=== PATIENT | female | born 1995 | race Caucasian/White ===

== ENCOUNTER 2019-05-25 22:28 | Emergency (ER) | payer OTHER ==
[~2019-05-25] VITALS: Ht 167.6 cm; Wt 50.0 kg
[2019-05-25] MEDS ORDERED: normal saline 1000ML IV soln IVB ONE (23:00)
--- NOTE | 2019-05-25 23:17 | NUR ---
PT REQUESTED THAT THE HOSPITAL RUN A BLOOD ALCOHOL TEST. ADVISED PT THAT THIS TEST IS NOT PERMISSABLE IN COURT. PT ALSO HAD AN OFFICIAL LEGAL DRAW DONE WELL.
[2019-05-25 23:20] LABS: URINE AMPHETAMINE SCREEN NEGATIVE (Neg); URINE BARBITUATE SCREEN NEGATIVE (Neg); URINE BENZODIAZEPINES SCREEN NEGATIVE (Neg); URINE CANNABINOID SCREEN NEGATIVE (Neg); URINE COCAINE SCREEN NEGATIVE (Neg); URINE METHADONE SCREEN NEGATIVE (Neg); URINE OPIATE SCREEN NEGATIVE (Neg); URINE PHENCYCLIDINE SCREEN NEGATIVE (Neg)
[2019-05-26 01:28] VITALS: BP 157/100
== END 2019-05-26 01:30 | disposition home or self-care (01) ==
LOC: ER 22:29
DX: F10.929 Alcohol use, unspecified with intoxication, unspecified (principal); R00.0 Tachycardia, unspecified; I10 Essential (primary) hypertension; V49.88XA Car occupant (driver) (passenger) injured in other specified transport accidents, initial encounter; Y93.89 Activity, other specified; Y92.413 State road as the place of occurrence of the external cause; Y99.9 Unspecified external cause status; Y90.9 Presence of alcohol in blood, level not specified
CPT/HCPCS: 36415; 80305; 80320; 99283; J7030

== ENCOUNTER 2020-02-08 16:33 | Emergency (ER) | payer OTHER ==
[~2020-02-08] VITALS: Ht 167.6 cm; Wt 52.7 kg
[2020-02-08 17:25] LABS: BASOPHILS % (AUTO) 0.1 % (0-1); EOSINOPHILS % (AUTO) 0 % (0-6); HEMOGLOBIN 14.7 g/dl (12.0-16.0); LYMPHOCYTES # (AUTO) 0.6 X10'3 (1.1-4.8); LYMPHOCYTES % (AUTO) 5.6 % (21-51); MEAN CORPUSCULAR HEMOGLOBIN 35.7 PG (27.0-31.0); MEAN CORPUSCULAR VOLUME 104.7 FL (78-98); MEAN PLATELET VOLUME 6.9 FL (7.4-10.4); MONOCYTES # (AUTO) 0.6 X10'3 (0-0.9); MONOCYTES % (AUTO) 5.4 % (2-12); NEUTROPHILS # (AUTO) 10.2 X10'3 (1.8-7.7); NEUTROPHILS % (AUTO) 88.9 % (42-75); PLATELET COUNT 304 X10'3 (140-440); RED BLOOD COUNT 4.11 X10'6 (4.20-5.60); RED CELL DISTRIBUTION WIDTH 12.9 % (11.5-14.5); WHITE BLOOD COUNT 11.5 X10'3 (4.5-11.0)
[2020-02-08 17:30] LABS: ALANINE AMINOTRANSFERASE 35 U/L (12-78); ALBUMIN 4.6 G/DL (3.4-5.0); ALBUMIN/GLOBULIN RATIO 1.4 (1.1-1.5); ALKALINE PHOSPHATASE 72 IU/L (46-116); ANION GAP 14 (8-16); ASPARTATE AMINO TRANSFERASE 48 U/L (10-37); BILIRUBIN,TOTAL 2.5 MG/DL (0.1-1.0); BLOOD UREA NITROGEN 11 MG/DL (7-18); BUN/CREATININE RATIO 16.4 (6.6-38.0); CALCIUM 9.6 MG/DL (8.5-10.1); CHLORIDE 96 MMOL/L (99-107); CREATININE 0.67 MG/DL (0.40-0.90); GLUCOSE 99 MG/DL (70-104); POTASSIUM 3.6 MMOL/L (3.5-5.1); SODIUM 135 MMOL/L (135-145); TOTAL CARBON DIOXIDE 25.3 MMOL/L (24-32); TOTAL PROTEIN 7.9 G/DL (6.4-8.2); eGFR > 90 ML/MIN
[2020-02-08 17:31] LABS: AMYLASE 184 U/L (25-115)
[2020-02-08 17:48] LABS: LIPASE 2960 U/L (73-393)
[2020-02-08] MEDS ORDERED: ketorolac trometh. 30mg/ml inj. IV ONE (18:10)
[2020-02-08] MEDS ORDERED: normal saline 1000ML IV soln IVB ONE (18:10)
[2020-02-08] MEDS ORDERED: ondansetron/PF 4mg/2ml inj IV ONE (18:10)
[2020-02-08] MEDS: morphine 4 MG/ML inj SYRINge IV PRN ×2 (18:33→20:48)
[2020-02-08] MEDS ORDERED: ONDA4TAB6 PO (18:44)
[2020-02-08] MEDS ORDERED: LORA-269 PO (18:44)
[2020-02-08] MEDS ORDERED: HYDR-4383 PO (18:44)
[2020-02-08] MEDS ORDERED: GABA300C PO (18:44)
[2020-02-08] MEDS ORDERED: famotidine/PF 10 mg/ml inj IV ONE (18:45)
[2020-02-08 19:29] LABS: CLARITY,URINE CLEAR (Clear); COLOR,URINE YELLOW (Yellow); GLUCOSE, URINE NEGATIVE (Neg); KETONES,URINE 40 mg/dl (Neg); LEUKOCYTE ESTERASE ,URINE TRACE (Neg); NITRITES, URINE NEGATIVE (Neg); OCCULT BLOOD,URINE TRACE-LYSED (Neg); PH,URINE 6.5 (4.8-8.0); PROTEIN,URINE NEGATIVE (Neg); UROBILINOGEN,URINE 0.2 E.U/dL (0.2-1.0)
[2020-02-08 19:34] LABS: URINE HCG NEGATIVE (NEG)
[2020-02-08 19:44] LABS: UA COLLECTION TYPE CLN CATCH MIDSTREAM
[2020-02-08 19:46] LABS: BACTERIA,URINE 1+ /HPF (Neg); MUCUS STRANDS FEW /LPF (Neg); RBC,URINE 0-2 /HPF (0-2); SQUAMOUS EPITHELIAL CELL,UR FEW /LPF (FEW); TRANSITIONAL EPI CELLS,URINE FEW /HPF; WBC,URINE 0-4 /HPF (0-4)
[2020-02-08] MEDS ORDERED: proCHLORperazine 10 MG/2 ml inj IV ONE (20:30)
[2020-02-08 20:55] VITALS: BP 145/105
== END 2020-02-08 20:57 | disposition home or self-care (01) ==
LOC: ER 16:34
DX: K85.20 Alcohol induced acute pancreatitis without necrosis or infection (principal); R11.10 Vomiting, unspecified; R10.84 Generalized abdominal pain; R63.0 Anorexia; Z72.89 Other problems related to lifestyle; Z79.899 Other long term (current) drug therapy
CPT/HCPCS: 36415; 74176; 80053; 81001; 81025; 82150; 83690; 85025; 87088; 96361; 96374; 96375; 99284; J0780; J1885; J2270; J2405; J3490; J7030

== ENCOUNTER 2021-07-03 12:47 | Emergency (ER) | payer MEDICAID ==
[~2021-07-03] VITALS: Ht 172.7 cm; Wt 50.0 kg
[~2021-07-03 12:47] MED LIST: GABA300C PO; HYDR-4383 PO; LORA-269 PO; ONDA4TAB6 PO
[2021-07-03] MEDS ORDERED: folic acid 1mg/0.2ml inj IV ONE (12:55)
[2021-07-03] MEDS ORDERED: ondansetron/PF 4mg/2ml inj IV ONE (12:55)
[2021-07-03] MEDS ORDERED: thiamine 100mg/ml 2ml inj. IV ONE (12:55)
[2021-07-03] MEDS ORDERED: LORazepam 2 mg/ml vial IV ONE ×2 (12:55→14:55)
[2021-07-03] MEDS ORDERED: normal saline 1000ML IV soln IVB ONE (12:55)
[2021-07-03 13:57] LABS: BASOPHILS % (AUTO) 0.3 % (0-1); EOSINOPHILS % (AUTO) 0.1 % (0-6); HEMATOCRIT 37.4 % (35.0-45.0); HEMOGLOBIN 12.9 g/dl (12.0-16.0); LYMPHOCYTES # (AUTO) 0.5 X10'3 (1.1-4.8); LYMPHOCYTES % (AUTO) 5.8 % (21-51); MEAN CORPUSCULAR HEMOGLOBIN 35.5 PG (27.0-31.0); MEAN CORPUSCULAR HGB CONC 34.6 g/dL (33.0-36.5); MEAN CORPUSCULAR VOLUME 102.6 FL (78-98); MEAN PLATELET VOLUME 6.9 FL (7.4-10.4); MONOCYTES # (AUTO) 0.5 X10'3 (0-0.9); MONOCYTES % (AUTO) 5.8 % (2-12); NEUTROPHILS # (AUTO) 8.2 X10'3 (1.8-7.7); PLATELET COUNT 303 X10'3 (140-440); RED BLOOD COUNT 3.64 X10'6 (4.20-5.60); RED CELL DISTRIBUTION WIDTH 13.8 % (11.5-14.5); WHITE BLOOD COUNT 9.4 X10'3 (4.5-11.0)
[2021-07-03 14:16] LABS: ALANINE AMINOTRANSFERASE 100 U/L (12-78); ALBUMIN 3.4 G/DL (3.4-5.0); ALBUMIN/GLOBULIN RATIO 0.8 (1.1-1.5); ALKALINE PHOSPHATASE 109 IU/L (46-116); ANION GAP 14 (8-16); ASPARTATE AMINO TRANSFERASE 138 U/L (10-37); BILIRUBIN,TOTAL 1.2 MG/DL (0.1-1.0); BLOOD UREA NITROGEN 6 MG/DL (7-18); BUN/CREATININE RATIO 8.8 (6.6-38.0); CALCIUM 9.2 MG/DL (8.5-10.1); CHLORIDE 96 MMOL/L (99-107); CREATININE 0.68 MG/DL (0.40-0.90); ETHANOL < 0.010 GM/DL (0.0-0.010); GLUCOSE 185 MG/DL (70-104); SODIUM 138 MMOL/L (135-145); TOTAL CARBON DIOXIDE 28.4 MMOL/L (24-32); TOTAL PROTEIN 7.6 G/DL (6.4-8.2); eGFR > 90 ML/MIN
[2021-07-03 14:26] LABS: POTASSIUM 2.6 MMOL/L (3.5-5.1)
[2021-07-03] MEDS ORDERED: potassium Cl 20 mEq SR tablet PO STA (14:45)
[2021-07-03] MEDS ORDERED: potassium Cl 10 mEq/100mL bag IV ONE (14:45)
[2021-07-03] MEDS ORDERED: GABA100C PO (15:18)
[2021-07-03] MEDS ORDERED: ALBU6.7H9 INH (15:18)
[2021-07-03] MEDS ORDERED: LORA-269 PO (15:18)
[2021-07-03] MEDS ORDERED: ONDA4TAB12 PO (15:18)
[2021-07-03 15:33] LABS: CLARITY,URINE SLIGHTLY CLOUDY (Clear); COLOR,URINE YELLOW (Yellow); GLUCOSE, URINE NEGATIVE (Neg); KETONES,URINE >=80 mg/dl (Neg); LEUKOCYTE ESTERASE ,URINE TRACE (Neg); NITRITES, URINE NEGATIVE (Neg); OCCULT BLOOD,URINE TRACE-INTACT (Neg); PROTEIN,URINE 30 mg/dl (Neg); URINE HCG NEGATIVE (NEG); UROBILINOGEN,URINE 0.2 E.U/dL (0.2-1.0)
[2021-07-03 15:34] LABS: UA COLLECTION TYPE CLN CATCH MIDSTREAM
[2021-07-03 15:37] LABS: URINE AMPHETAMINE SCREEN NEGATIVE (Neg); URINE BARBITUATE SCREEN NEGATIVE (Neg); URINE BENZODIAZEPINES SCREEN NEGATIVE (Neg); URINE CANNABINOID SCREEN NEGATIVE (Neg); URINE COCAINE SCREEN NEGATIVE (Neg); URINE METHADONE SCREEN NEGATIVE (Neg); URINE OPIATE SCREEN NEGATIVE (Neg); URINE PHENCYCLIDINE SCREEN NEGATIVE (Neg)
[2021-07-03 15:51] LABS: BACTERIA,URINE 1+ /HPF (Neg); RBC,URINE 0-2 /HPF (0-2); SQUAMOUS EPITHELIAL CELL,UR MODERATE /LPF (FEW)
[2021-07-03 15:52] LABS: HYALINE CASTS 0-3 /LPF (NEGATIVE); MUCUS STRANDS FEW /LPF (Neg); WBC CLUMPS,URINE FEW /HPF (NEGATIVE)
[2021-07-03 16:26] VITALS: BP 153/113
== END 2021-07-03 17:01 | disposition home or self-care (01) ==
LOC: ER 12:47
DX: U07.1 COVID-19 (principal); F10.239 Alcohol dependence with withdrawal, unspecified; R11.2 Nausea with vomiting, unspecified; R53.1 Weakness; E87.6 Hypokalemia; Z72.89 Other problems related to lifestyle; Z79.899 Other long term (current) drug therapy; Y90.0 Blood alcohol level of less than 20 mg/100 ml
CPT/HCPCS: 36415; 71045; 80053; 80305; 80320; 81001; 81025; 82948; 85025; 87088; 87635; 93005; 96374; 96375; 99285; C9803; J2060; J2405; J3411; J3480; J3490; J7030

== ENCOUNTER 2021-10-27 13:23 | Emergency (ER) | payer MEDICAID ==
[~2021-10-27] VITALS: Ht 170.2 cm; Wt 54.5 kg
[~2021-10-27 13:23] MED LIST changes: +ALBU6.7H9 INH; +GABA100C PO; +ONDA4TAB12 PO
[2021-10-27 13:25] VITALS: BP 137/88
[2021-10-27] MEDS ORDERED: LIDOcaine 1% 30ml preserv. free vial SQ STA (13:52)
[2021-10-27] MEDS ORDERED: SULF1TAB49 PO (14:05)
[2021-10-27] MEDS ORDERED: ibuprofen tablet 400 MG TABLET PO ONE (14:20)
[2021-10-27] MEDS ORDERED: sulfamethoxazole/trimethoprim DS (800/160mg) tablet PO ONE (14:20)
== END 2021-10-27 14:43 | disposition home or self-care (01) ==
LOC: ER 13:23
DX: L02.212 Cutaneous abscess of back [any part, except buttock and flank] (principal); L02.413 Cutaneous abscess of right upper limb
CPT/HCPCS: 10061; 87070; 87077; 87186; 99284